=== PATIENT | male | born 1990 | race Two or more races ===

== ENCOUNTER 2017-05-02 17:54 | Emergency (ER) | payer SELFPAY ==
--- NOTE | 2017-05-02 19:29 | C.PDOC ---
History Of Present Illness 26 yo male come in for evaluation of B/L legs pain developed since early today. Pt reports, " was discharged from detox program yesterday evening and woke up today with some sharp pain over shins". Pt sts, pain is localized over B/L murdock area, intermittent. Otherwise, pt denies known trauma or injury, fever, chills, cough, CP, SOB, dyspnea, palpitation, denies B/L calf pain. Pt also request Rx: Librium " my was in March,". Pt reports, " feels little shaky". Ambulate to Ed for evaluation, appears comfortable, not in any apparent distress. Time Seen by Provider: 05/02/17 18:57 Chief Complaint (Nursing): Lower Extremity Problem/Injury History Per: Patient Past Medical History Reviewed: Historical Data, Nursing Documentation, Vital Signs - Medical History PMH: No Chronic Diseases Family History: States: No Known Family Hx - Social History Hx Alcohol Use: Yes Hx Substance Use: No Review Of Systems Except As Marked, All Systems Reviewed And Found Negative. Constitutional: Negative for: Fever, Chills Eyes: Negative for: Vision Change ENT: Negative for: Throat Pain, Throat Swelling Cardiovascular: Negative for: Chest Pain Respiratory: Negative for: Cough, Shortness of Breath, Wheezing Gastrointestinal: Negative for: Nausea, Vomiting, Abdominal Pain Musculoskeletal: Positive for: Leg Pain Skin: Negative for: Rash, Bruising Neurological: Negative for: Weakness, Numbness, Altered Mental Status, Headache , Dizziness Physical Exam - Physical Exam Appears: Well, Non-toxic, No Acute Distress Skin: Normal Color, Warm, Dry, No Rash Head: Normacephalic Eye(s): bilateral: PERRL Nose: No Flaring, No Discharge Oral Mucosa: Moist, No Drooling Throat: No Drooling Neck: Trachea Midline, Supple Cardiovascular: Rhythm Regular Respiratory: No Decreased Breath Sounds, No Accessory Muscle Use, No Stridor, No Wheezing Gastrointestinal/Abdominal: Soft, No Distention, No Guarding Back: No CVA Tenderness Extremity: Normal ROM, Tenderness (mild along tibial tuberosity. No skin changes , no palpable deformity.), No Calf Tenderness (B/L), No Deformity, No Swelling Neurological/Psych: Oriented x3, Normal Speech, Normal Motor, Normal Sensation, Normal Reflexes ED Course And Treatment Progress Note: On re-evaluation, pt is awake, comforatble, not in any apparent distress. Afebrile, hemodynamicay stable. NOn-toxic. PuslEOx 100% RA. Neck: SUpple, (-) JVD. Lungs: CTA B/L, BS equal B/L. Abd: benign. Neurologicaly intact. Pt advised on course of ds. ref. to f/u with Psych in 2-3 days for re -eavl. return if any worsneing or new changes. Disposition Counseled Patient/Family Regarding: Diagnosis, Need For Followup, Rx Given - Disposition Referrals: Alcoholics Anonymous [Outside] Disposition Time: 19:24 Condition: STABLE Additional Instructions: TAKE MEDICATION PRESCRIBED FOLLOW UP WITH PSYCHIATRIST IN 2-3 DAYS FOR RE-EVALUATION. RETURN TO ED IF ANY WORSENING OR NEW CHANGES. Prescriptions: chlordiazePOXIDE [Chlordiazepoxide HCl] 25 mg PO BID #6 cap Instructions: Muscle Cramp (ED), Alcohol Withdrawal (ED) - Clinical Impression Clinical Impression: Muscle spasm, Alcohol withdrawal
[2017-05-02 19:34] VITALS: PULSE 90; O2SAT 99
[2017-05-02 19:36] VITALS: BP 102/65; RESP 16; TEMP 98.5
== END 2017-05-02 20:00 | disposition home or self-care (01) ==
LOC: C.ER 17:54
DX: F10.239 Alcohol dependence with withdrawal, unspecified (principal); M62.838 Other muscle spasm

== ENCOUNTER 2017-09-14 13:46 | Emergency (ER) | payer MEDICAID, OTHER ==
[2017-09-14 13:59] VITALS: RESP 20
--- NOTE | 2017-09-14 15:23 | C.PDOC ---
History Of Present Illness 26yo male with history of seizures, presents to ED reporting he has been feeling drowsy at times. Patient states he was recent informed he has "anxiety seizures" and was prescribed Remeron which he has been taking in addition to his Dilantin. Patient denies any new seizures, weakness, numbness, and offers no medical complaints. He reports he has a scheduled neurology follow up tomorrow. Time Seen by Provider: 09/14/17 14:41 Chief Complaint (Nursing): Seizure History Per: Patient History/Exam Limitations: no limitations Recent travel outside of the [place]: No Additional History Per: Patient Past Medical History Reviewed: Historical Data, Nursing Documentation, Vital Signs Vital Signs: Last Vital Signs Temp 98.9 F 09/14/17 15:51 Pulse 94 H 09/14/17 15:51 Resp 20 09/14/17 15:51 BP 137/88 09/14/17 15:51 Pulse Ox 98 09/14/17 16:23 - Medical History PMH: No Chronic Diseases, Seizures Surgical History: No Surg Hx Family History: States: No Known Family Hx, Unknown Family Hx - Social History Hx Alcohol Use: Yes Hx Substance Use: No Review Of Systems Except As Marked, All Systems Reviewed And Found Negative. Constitutional: Negative for: Weakness Neurological: Negative for: Seizures, Headache Physical Exam - Physical Exam Appears: Non-toxic, No Acute Distress Skin: Normal Color Head: Atraumatic, Normacephalic Eye(s): bilateral: Normal Inspection Neck: Normal ROM, Supple Chest: Symmetrical Cardiovascular: Rhythm Regular Respiratory: Normal Breath Sounds Extremity: Normal ROM, No Deformity Neurological/Psych: Oriented x3 Gait: Steady ED Course And Treatment O2 Sat by Pulse Oximetry: 98 (RA) Pulse Ox Interpretation: Normal Medical Decision Making Medical Decision Making: Impression: Concern for medication interaction Plan: -- Patient informed to follow up tomorrow with neurologist as scheduled. No indication for emergent intervention based on patient's presentation. Disposition - Disposition Disposition: HOME/ ROUTINE Disposition Time: 16:23 Condition: GOOD Additional Instructions: Follow up with your Neurologist tomorrow as scheduled. Instructions: Epilepsy in Adults Forms: [facility] (Vietnamese), Work Excuse - Clinical Impression Clinical Impression: Seizure - Scribe Statement The provider has reviewed the documentation as recorded by the Scribe (Betty Douglas) Provider Attestation: All medical record entries made by the Scribe were at my direction and personally dictated by me. I have reviewed the chart and agree that the record accurately reflects my personal performance of the history, physical exam, medical decision making, and the department course for this patient. I have also personally directed, reviewed, and agree with the discharge instructions and disposition.
[2017-09-14 15:52] VITALS: BP 137/88; PULSE 94; TEMP 98.9
[2017-09-14 16:01] VITALS: O2SAT 98
== END 2017-09-14 15:52 | disposition home or self-care (01) ==
LOC: C.ER 13:46
DX: G40.909 Epilepsy, unspecified, not intractable, without status epilepticus (principal)